=== PATIENT | female | born 1955 | race Caucasian/White ===

== ENCOUNTER 2017-08-18 18:39 | Emergency (ER) | payer BC ==
--- NOTE | 2017-08-18 19:44 | UC ---
Eye Complaint HPI - HPI Summary HPI Summary: 61 year old female presents with complains of left eye pain secondary to being poked in the eye. - History of Current Complaint Chief Complaint: UCEye Stated Complaint: LEFT EYE COMPLAINT Time Seen by Provider: 08/18/17 19:43 Hx Obtained From: Patient Onset/Duration: Sudden Onset Timing: Constant Severity Initially: Moderate Severity Currently: Moderate Pain Scale Used: 0-10 Numeric - 5 Location of Injury: Conjunctiva, Sclera Character: Sharp, Throbbing Aggravating Factor(s): Light Alleviating Factor(s): Darkness - Allergies/Home Medications Allergies/Adverse Reactions: Allergies Allergy/AdvReac Type Severity Reaction Status Date / Time Penicillins Allergy Intermediate Rash Verified 08/18/17 19:38 Home Medications: Home Medications Colesevelam HCl [Welchol] 1 tab BID 08/18/17 [History Confirmed 08/18/17] Cyclosporine 0.05% OPHTH (NF) [Restasis 0.05% OPHTH] 1 drop BID 08/18/17 [ History Confirmed 08/18/17] DOXYcycline CAP(*) [DOXYcycline 100MG CAP(*)] 1 tab BID 08/18/17 [History Confirmed 08/18/17] Esomeprazole(NF) [NEXium(NF)] 20 mg PO DAILY 08/18/17 [History Confirmed ] Insulin Aspart [Novolog] 12 - 16 unit TID 08/18/17 [History Confirmed 08/18/17] Insulin GLARGINE(*) [Lantus(*)] 30 unit BEDTIME 08/18/17 [History Confirmed 03/28] Irbesartan [Avapro] 1 tab DAILY 08/18/17 [History Confirmed 08/18/17] Sitagliptin Phosphate [Januvia] 100 mg PO DAILY 08/18/17 [History Confirmed 03/28] amLODIPine TAB* [Norvasc 5 mg TAB*] 5 mg DAILY 08/18/17 [History Confirmed 08/18] metFORMIN* [Glucophage 1000 MG TAB *] 1,000 mg PO BID 08/18/17 [History Confirmed 08/18/17] PMH/Surg Hx/FS Hx/Imm Hx Previously Healthy: Yes - Surgical History Surgical History: Yes Surgery Procedure, Year, and Place: tonsillectomy - Family History Known Family History: Positive: None - Social History Alcohol Use: Weekly Alcohol Amount: few times a week Substance Use Type: None Smoking Status (MU): Never Smoked Tobacco Review of Systems Constitutional: Negative Skin: Negative Eyes: Negative, Eye Redness, Photophobia ENT: Negative Respiratory: Negative Cardiovascular: Negative Gastrointestinal: Negative Genitourinary: Negative Motor: Negative Neurovascular: Negative Musculoskeletal: Negative Neurological: Negative Psychological: Negative All Other Systems Reviewed And Are Negative: Yes Physical Exam Triage Information Reviewed: Yes Vital Signs Reviewed: Yes Eyes: Positive: Conjunctiva Inflamed, Discharge ENT Exam: Normal Dental Exam: Normal Neck exam: Normal Neck: Positive: 1 Respiratory Exam: Normal Cardiovascular Exam: Normal Abdominal Exam: Normal Musculoskeletal Exam: Normal Neurological Exam: Normal Psychological Exam: Normal Skin Exam: Normal Eye Complaint Course/Dx - Differential Dx/Diagnosis Provider Diagnoses: corneal abrasion Discharge - Discharge Plan Condition: Stable Disposition: HOME Prescriptions: Ciprofloxacin 0.3% OPTH.KARLA* [Cipro 0.3% Opth*] 1 drop LEFT EYE Q2H #1 btl Patient Education Materials: Corneal Abrasion (ED) Referrals: Vinny Verdugo MD [Primary Care Provider] - Jennifer Brush MD [Medical Doctor] -
[2017-08-18 19:47] VITALS: BP 152/70
== END 2017-08-18 20:00 | disposition home or self-care (01) ==
LOC: UCCORT 18:39
DX: S05.02XA Injury of conjunctiva and corneal abrasion without foreign body, left eye, initial encounter (principal); W50.0XXA Accidental hit or strike by another person, initial encounter; Y93.9 Activity, unspecified; Y92.9 Unspecified place or not applicable; Z88.0 Allergy status to penicillin
CPT/HCPCS: 99212; G0463

== ENCOUNTER 2019-01-15 19:19 | Emergency (ER) | payer BC ==
[2019-01-15 19:45] VITALS: BP 153/81
--- NOTE | 2019-01-15 20:16 | ED ---
Throat Pain/Nasal Congestion - HPI Summary HPI Summary: pt presents to the for evaluation of her red eyes. she states her grandkids have had pink eye. she has had a very mild non-productive cough which is better. she states that the discharge from her eyes significantly increased today. - History of Current Complaint Chief Complaint: UCEye Hx Obtained From: Patient Onset/Duration: Gradual Onset Severity: Moderate - Allergies/Home Medications Allergies/Adverse Reactions: Allergies Allergy/AdvReac Type Severity Reaction Status Date / Time Penicillins Allergy Rash Verified 01/15/19 19:46 Home Medications: Home Medications Latanoprost 0.005%* [Xalatan 0.005%*] 1 drop BOTH EYES QPM 01/15/19 [History Confirmed 01/15/19] Rosuvastatin Calcium [Crestor] 5 mg PO DAILY 01/15/19 [History Confirmed ] PMH/Surg Hx/FS Hx/Imm Hx Previously Healthy: Yes Endocrine/Hematology History: Reports: Hx Diabetes - type II Cardiovascular History: Reports: Hx Hypertension - Surgical History Surgery Procedure, Year, and Place: tonsillectomy Infectious Disease History: No Infectious Disease History: Denies: Traveled Outside the [place] in Last 30 Days - Family History Known Family History: Positive: None - Social History Alcohol Use: Weekly Alcohol Amount: few times a week Substance Use Type: Reports: None Smoking Status (MU): Never Smoked Tobacco Review of Systems Constitutional: Negative Positive: Drainage ENT: Negative Cardiovascular: Negative Respiratory: Negative Gastrointestinal: Negative Genitourinary: Negative Musculoskeletal: Negative Skin: Negative Neurological: Negative Psychological: Normal All Other Systems Reviewed And Are Negative: No Physical Exam Triage Information Reviewed: Yes Vital Signs On Initial Exam: Initial Vitals Temp Pulse Resp BP Pulse Ox 99.4 F 106 18 153/81 96 01/15/19 19:38 01/15/19 19:38 01/15/19 19:38 01/15/19 19:38 01/15/19 19:38 Vital Signs Reviewed: Yes Appearance: Positive: Well-Appearing, No Pain Distress, Well-Nourished Skin: Positive: Warm, Dry Eyes: Positive: Conjunctiva Inflammed, Discharge - significant discharge ENT: Positive: Hearing grossly normal Neck: Positive: Supple, Nontender Respiratory/Lung Sounds: Positive: Clear to Auscultation, Breath Sounds Present Cardiovascular: Positive: Normal, RRR Abdomen Description: Positive: Nontender, Soft Bowel Sounds: Positive: Present Musculoskeletal: Positive: Normal, Strength/ROM Intact Neurological: Positive: Normal, Sensory/Motor Intact, Alert, Oriented to Person Place, Time, CN Intact II-III Psychiatric: Positive: Normal AVPU Assessment: Alert Diagnostics - Vital Signs Vital Signs Temp Pulse Resp BP Pulse Ox 01/15/19 19:38 99.4 F 106 18 153/81 96 - Laboratory Lab Statement: Any lab studies that have been ordered have been reviewed, and results considered in the medical decision making process. EENT Course/Dx - Course Course Of Treatment: pt has impressive conjunctivitis. h er grandkids have it. pt requested liquid abx for eyes. pt discharged and encouraged to f/u with pcp and to wash hands thoroughly. - Diagnoses Provider Diagnoses: Conjunctivitis Discharge - Sign-Out/Discharge Documenting (check all that apply): Patient Departure All imaging exams completed and their final reports reviewed: No Studies - Discharge Plan Condition: Stable Disposition: HOME Prescriptions: Sulfacetamide 10 % OPTH.KARLA* [Sulamyd 10% Opth*] 1 drop BOTH EYES Q4H #1 btl Patient Education Materials: Conjunctivitis (ED) Referrals: Vinny Verdugo MD [Primary Care Provider] - Additional Instructions: use the eye drops as instructed. return if worse or any new symptoms. Take tylenol and motrin for pain or discomfort. follow up with your doctor next week. - Billing Disposition and Condition Condition: STABLE Disposition: Home
== END 2019-01-15 20:32 | disposition home or self-care (01) ==
LOC: UCCORT 19:19
DX: H10.9 Unspecified conjunctivitis (principal); Z79.899 Other long term (current) drug therapy
CPT/HCPCS: 99212; G0463